=== PATIENT | female | born 1955 | race Caucasian/White ===

== ENCOUNTER 2017-05-31 08:37 | Observation (INO) | payer MEDICARE, MEDICAID ==
[~2017-05-31] VITALS: Ht 162.6 cm; Wt 100.0 kg
[2017-05-31] VITALS (12 sets, daily range): BP systolic 140–179; BP diastolic 65–87; PULSE 75–96; RESP 16–18; TEMP 95.8–99; O2SAT 93–100
[~2017-05-31 08:37] MED LIST: CYCL7.5T33 PO; GABA300C5 PO; LEVO88TA2 PO; LISI-515 PO; METF1000 PO; MULTLIQ; SOMA350T PO; TRAM50TA PO
[2017-05-31] MEDS ORDERED: SODIUM CHLOR 0.9% 250 ML INJ 250 ML IV ONE ×2 (09:00→10:30)
[2017-05-31] MEDS ORDERED: HYDR-2376 PO (09:17)
--- NOTE | 2017-05-31 09:19 | PD ---
HPI Chief Complaint: Abnormal Results Time Seen by Provider: 08:50 Travel History International Travel<30 days: No Contact w/Intl Traveler<30days: No Traveled to known affect area: No History of Present Illness HPI PATIENT HAD ROUTINE LABS DRAWN LAST WEDNESDAY, AT DR JAKY DAVIS OFFICE. PATIENT WAS CALLED FOR LOW HEMOGLOBIN, PER PATIENT SIMILAR EVENT HAPPENED BACK IN DECEMBER AND REQUIRED 4 UNITS TRANSFUSION. RECENTLY HAS BEEN FEELING MORE GENERALIZED WEAKNESS WITH ACTIVITY, AGGRAVATING WITH ACTIVITY, NO ALLEVIATING FACTORS. DENIES ASSOCIATED FACTORS OF DANIEL/CP/N/V/D/ABD PAIN/SOB CHART AND RN NOTES REVIEWED PCP ABOVE ALL:NKDA PMHX: HTN, HYPOTHYROID, HYPERLIPIDEMIA, DM, DDD, OSTEOARTHRITIS PSHX:GASTRIC BYPASS, CHOLECYSTECTOMY, BTL AND HYST PFSH Past Medical History Anemia: Yes Arthritis: Yes Autoimmune Disease: Yes (hypothyroid ) Cancer: No Cardiovascular Problems: No Diabetes: Yes Patient Takes Glucophage: Yes Endocrine: Yes Gastrointestinal Disorders: Yes (93' GASTRIC BY-PASS -REPAIR HIATAL HERNIA) Genitourinary: No Hepatitis: No Hiatal Hernia: No (REPAIRED IN 93') Hypertension: Yes Immune Disorder: No (ra) Medical other: Yes (POLYCYSTIC OVARIAN SYNDROME) Musculoskeletal: Yes (ARTHRITIS; BACK PAIN AND NECK PAIN. pain l leg) Neurologic: No Psychiatric: No Reproductive: No Respiratory: No Thyroid Disease: Yes Tubal Ligation: Yes Past Surgical History Abdominal Surgery: Yes (93' GASTRIC BY-PASS REPAIR HIATAL HERNIA AND ROSY) AICD: No Body Medical Devices: damir from bypass Section: Yes Cholecystectomy: Yes Gynecologic Surgery: Yes (80' TUBAL LIGATION, c section) Joint Replacement: No Pacemaker: No Other Surgery: Yes Social History Alcohol Use: No Tobacco Use: No Substance Use: No Allergies-Medications (Allergen,Severity, Reaction): Coded Allergies: No Known Allergies (Unverified Allergy, Unknown, 05/31/17) Reported Meds & Prescriptions Reported Meds & Active Scripts Active Flexeril (Cyclobenzaprine HCl) 7.5 Mg Tab 7.5 Mg PO TID Soma (Carisoprodol) 350 Mg Tab 350 Mg PO TID PRN Lisinopril 20 Mg Tab 20 Mg PO DAILY Gabapentin 300 Mg Cap 300 Mg PO BID Levothyroxine (Levothyroxine Sodium) 88 Mcg Tab 88 Mcg PO DAILY Metformin (Metformin HCl) 1,000 Mg Tab 1,000 Mg PO BIDPC With meals Tramadol (Tramadol HCl) 50 Mg Tab 50 Mg PO Q6H PRN Reported Hydrocodone-Acetaminophen 7.5-300 Mg Tab 1 Tab PO Q4H PRN Review of Systems Except as stated in HPI: all other systems reviewed are Neg General / Constitutional: No: Fever Eyes: No: Visual changes HENT: No: Headaches Cardiovascular: No: Chest Pain or Discomfort Respiratory: No: Shortness of Breath Gastrointestinal: No: Abdominal Pain Genitourinary: No: Dysuria Musculoskeletal: No: Pain Skin: Positive Other (PALE) Neurologic: Positive: Weakness (GEN) Psychiatric: No: Depression Endocrine: No: Polydipsia Hematologic/Lymphatic: No: Easy Bruising Physical Exam Narrative GENERAL: SKIN: Warm and dry. PALLOR HEAD: Atraumatic. Normocephalic. EYES: Pupils equal and round. No scleral icterus. No injection or drainage. ENT: No nasal bleeding or discharge. Mucous membranes pink and moist. NECK: Trachea midline. No JVD. CARDIOVASCULAR: Regular rate and rhythm. RESPIRATORY: No accessory muscle use. Clear to auscultation. Breath sounds equal bilaterally. GASTROINTESTINAL: Abdomen soft, non-tender, nondistended. MUSCULOSKELETAL: Extremities without clubbing, cyanosis, or edema. No obvious deformities. NEUROLOGICAL: Awake and alert. No obvious cranial nerve deficits. Motor grossly within normal limits. Five out of 5 muscle strength in the arms and legs. Normal speech. PSYCHIATRIC: Appropriate mood and affect; insight and judgment normal. Data Data Last Documented VS Vital Signs Date Time Temp Pulse Resp B/P (MAP) Pulse Ox O2 Delivery O2 Flow Rate FiO2 05/31/17 09:08 72 18 98 Room Air 05/31/17 08:39 98.5 142/68 (92) Orders Orders Type And Screen (05/31/17 08:50) Blood Product Administration (05/31/17 08:50) Sodium Chlor 0.9% 250 Ml Inj (Ns 250 Ml (05/31/17 09:00) Electrocardiogram (05/31/17 08:50) Complete Blood Count With Diff (05/31/17 08:50) Comprehensive Metabolic Panel (05/31/17 08:50) Troponin I (05/31/17 08:50) Prothrombin Time / Inr (Pt) (05/31/17 08:50) Act Partial Throm Time (Ptt) (05/31/17 08:50) Admit Order (Ed Use Only) (05/31/17 10:07) Labs Laboratory Tests Test 05/31/17 09:00 White Blood Count 6.4 TH/MM3 Red Blood Count 3.76 MIL/MM3 Hemoglobin 5.8 GM/DL Hematocrit 20.6 % Mean Corpuscular Volume 54.9 FL Mean Corpuscular Hemoglobin 15.6 PG Mean Corpuscular Hemoglobin Concent 28.3 % Red Cell Distribution Width 19.4 % Platelet Count 448 TH/MM3 Mean Platelet Volume 8.5 FL Neutrophils (%) (Auto) 54.4 % Lymphocytes (%) (Auto) 36.0 % Monocytes (%) (Auto) 5.0 % Eosinophils (%) (Auto) 3.2 % Basophils (%) (Auto) 1.4 % Neutrophils # (Auto) 3.5 TH/MM3 Lymphocytes # (Auto) 2.3 TH/MM3 Monocytes # (Auto) 0.3 TH/MM3 Eosinophils # (Auto) 0.2 TH/MM3 Basophils # (Auto) 0.1 TH/MM3 CBC Comment DIFF FINAL Differential Comment Prothrombin Time 11.2 SEC Prothromb Time International Ratio 1.0 RATIO Activated Partial Thromboplast Time 23.8 SEC Blood Urea Nitrogen 13 MG/DL Creatinine 0.63 MG/DL Random Glucose 133 MG/DL Total Protein 7.6 GM/DL Albumin 3.6 GM/DL Calcium Level 9.0 MG/DL Alkaline Phosphatase 103 U/L Aspartate Amino Transf (AST/SGOT) 15 U/L Alanine Aminotransferase (ALT/SGPT) 17 U/L Total Bilirubin 0.3 MG/DL Sodium Level 137 MEQ/L Potassium Level 4.5 MEQ/L Chloride Level 105 MEQ/L Carbon Dioxide Level 23.7 MEQ/L Anion Gap 8 MEQ/L Estimat Glomerular Filtration Rate 95 ML/MIN Iron Level 13 MCG/DL Total Iron Binding Capacity 580 MCG/DL Percent Iron Saturation 2.2 % Ferritin 2 NG/ML Troponin I LESS THAN 0.02 NG/ML MDM Medical Decision Making Medical Screen Exam Complete: Yes Emergency Medical Condition: Yes Medical Record Reviewed: Yes Interpretation(s) NSR 65, NL INTERVALS, NO STEMI PATTERN Differential Diagnosis ANEMIA V PNA V PTX V ELECTROLYTE ABNL Narrative Course patient found to have severe anemia and symptomatic, so patient was type and crossed and transfused. also admitted for further reevaluation and to observe and ensure no transfusion reactions occur. Critical Care Narrative CRITICAL CARE NOTE: With evaluation of the patient, labs, EKG, receipt of radiologic studies, administration of medications, reevaluation the patient and discussion of the patient with the admitting physicians, the total critical care time was [30] minutes. Time to perform other separately billable procedures was not included in the critical care time. Diagnosis Primary Impression: symptomatic anemia Admitting Information Admitting Physician Requests: Admit Omar Hackett MD May 31, 2017 09:19
[2017-05-31 09:27] LABS: AUTOMATED NEUTROPHIL # 3.5 TH/MM3 (1.8-7.7); BASOPHIL # 0.1 TH/MM3 (0-0.2); BASOPHIL % 1.4 % (0.0-2.0); EOSINOPHIL # 0.2 TH/MM3 (0-0.4); EOSINOPHIL % 3.2 % (0.0-4.0); LYMPHOCYTE # 2.3 TH/MM3 (1.0-4.8); MEAN CELL VOLUME 54.9 FL (80.0-100.0); MEAN CORPUSCULAR HEMOGLOBIN 15.6 PG (27.0-34.0); NEUT % 54.4 % (16.0-70.0); PLATELET COUNT 448 TH/MM3 (150-450); RED BLOOD COUNT 3.76 MIL/MM3 (4.00-5.30); RED CELL DISTRIBUTION WIDTH 19.4 % (11.6-17.2); WHITE BLOOD COUNT 6.4 TH/MM3 (4.0-11.0)
[2017-05-31 09:31] LABS: HEMO FLAGS DIFF FINAL; MEAN CORPUSCULAR HGB CONC 28.3 % (32.0-36.0)
[2017-05-31 09:34] LABS: HEMATOCRIT 20.6 % (35.0-46.0)
[2017-05-31 09:36] LABS: APTT (PATIENT) 23.8 SEC (24.3-30.1); PROTHROMBIN TIME - PATIENT 11.2 SEC (9.8-11.6)
[2017-05-31 09:45] LABS: ANION GAP 8 MEQ/L (5-15); AST (GOT) 15 U/L (15-37); BICARBONATE 23.7 MEQ/L (21.0-32.0); BLOOD UREA NITROGEN 13 MG/DL (7-18); CHLORIDE 105 MEQ/L (98-107); GLOMERULAR FILTRATION RATE 95 ML/MIN (>89); POTASSIUM 4.5 MEQ/L (3.5-5.1); SODIUM (NA) 137 MEQ/L (136-145)
[2017-05-31 09:46] LABS: ALT (GPT) 17 U/L (10-53)
[2017-05-31 09:53] LABS: ALKALINE PHOSPHATASE 103 U/L (45-117); TOTAL BILIRUBIN ADULT 0.3 MG/DL (0.2-1.0)
--- NOTE | 2017-05-31 10:47 | HHI.HP ---
[facility] Service Family Medicine Primary Care Physician Emma Lutz MD Admission Diagnosis SYMPTOMATIC ANEMIA Diagnoses: International Travel<30 Days: No Contact w/Intl Traveler<30days: No Known Affected Area: No History of Present Illness Mrs. Pat is a 61 yo F patient of Dr. Emma Lutz with PM/SH of gastric bypass (1992), T2DM, hypothyroidism who presents to [facility] ED due to recent outpatient labs demonstrating anemia [patient contacted 05/[address] Ferguson regarding Hgb 5.3 mg/dl recommending ED evaluation/transfusion]. Patient reports that she has been doing ok recently but has been feeling more tired for the past several weeks. Patient has not been able to exert herself in her yard due to her recent fatigue; she has still been able to ambulate prolonged distances in grocery store. For the past ~2 days, patient has also felt increased dizziness. Patient does not report shortness of breath or chest pain. Patient reports recent history of anemia; she states that she required a total of 4 U pRBC transfused after L hip replacement 01/05/2017. [Per EMR review, patient had pre-op hemoglobin of 11.2 this summer]. Patient also reports distant history of anemia 45 years prior and in the late 1979's- early 1989's; patient reports heavy periods in her youth. Patient also reports family history of her mother having a "borderline" anemia but does not report other family members with anemia; she reports and ancestry. Patient reports gastric bypass in 1992; she has been taking some vitamin supplementation including iron supplementation, but has not taken iron supplementation for ~1 year. Patient continues to take B7 and multivitamin supplementation. Patient has not felt any increasing back pain, hip pain, or bruising since her L hip replacement; her back pain has remained consistent while being controlled with home opiates. Patient has also not noticed any blood in her stool; she has ~3 BM/day which are loose and not black or red in color. Patient does not report vaginal bleeding since ~1993. Patient denies headaches, reports history of cataracts but no recent vision changes, denies sweating or fevers, and denies chest pain. Patient reports some chronic indigestion from medications. No recent changes in L hip, lower back, or hip pain. PAP in 06/2015 was wnl. Colonoscopy- 2016 wnl (Scotty Calderon MD, R3) Review of Systems Constitutional: COMPLAINS OF: Fatigue, DENIES: Fever Eyes: DENIES: Blurred vision, Eye pain Respiratory: DENIES: Cough, Shortness of breath Cardiovascular: DENIES: Chest pain, Lower Extremity Edema Gastrointestinal: DENIES: Abdominal pain, Constipation, Diarrhea, Nausea, Vomiting Genitourinary: DENIES: Abnormal vaginal bleeding, Urinary frequency Integumentary: DENIES: Abnormal pigmentation, Rash Hematologic/lymphatic: DENIES: Bruising, Lymphadenopathy Neurologic: DENIES: Abnormal gait, Headache Psychiatric: DENIES: Anxiety, Depression (Scotty Calderon MD, R3) Past Family Social History Past Medical History PMH T2DM hypothyroidism anemia PCOS HTN RA OA lumbar stenosis Past Surgical History PSH 11/1992- gastric bypass 1977- CS 1979- tubal ligation cholecystectomy- 1992 hiatal hernia repair - 1992 2014- back surgery (lumar laminectomy with microdiscectomy) hip replacement 12/2016 (Scotty Calderon MD, R3) Allergies: Coded Allergies: No Known Allergies (Unverified Allergy, Unknown, 05/31/17) Family History FH mother- anemia, diabetic GM- skin cancer GF- unspecified cancer Social History SH- prior drinking; none recent quit cigarettes 30 yrs prior lives with pet (Scotty Calderon MD, R3) Physical Exam Vital Signs Vital Signs Date Time Temp Pulse Resp B/P (MAP) Pulse Ox O2 Delivery O2 Flow Rate FiO2 05/31/17 10:15 77 18 151/70 (97) 96 Room Air 05/31/17 09:08 72 18 98 Room Air 05/31/17 08:39 98.5 84 18 142/68 (92) 93 Physical Exam GENERAL: Patient appears comfortable, in no acute distress. SKIN: Warm and dry, no rashes appreciated. Tattoo distal lower extremity. L hip healed surgical incision present EYES: Pale palpebral conjunctivae. Grossly normal extraocular movements. HENT: Head: Normocephalic. Mouth: Oral mucosa appeared normal. NECK: No appreciated lymphadenopathy or thyromegaly CARDIOVASCULAR: Regular rate and rhythm without murmurs. Normal peripheral perfusion in lower extremities. RESPIRATORY: Normal respiratory rate. Lungs clear to auscultation bilaterally. GASTROINTESTINAL: Abdomen soft, nondistended,no pain to palpation. Bowel sounds normal. MUSCULOSKELETAL: No lower extremity swelling. No appreciated calf asymmetry. Gait not assessed NEURO/PSYCH: Awake, alert, and oriented. Cranial nerves grossly normal. Grossly normal motor and sensory function. Laboratory Laboratory Tests Test 05/31/17 09:00 White Blood Count 6.4 Red Blood Count 3.76 Hemoglobin 5.8 Hematocrit 20.6 Mean Corpuscular Volume 54.9 Mean Corpuscular Hemoglobin 15.6 Mean Corpuscular Hemoglobin Concent 28.3 Red Cell Distribution Width 19.4 Platelet Count 448 Mean Platelet Volume 8.5 Neutrophils (%) (Auto) 54.4 Lymphocytes (%) (Auto) 36.0 Monocytes (%) (Auto) 5.0 Eosinophils (%) (Auto) 3.2 Basophils (%) (Auto) 1.4 Neutrophils # (Auto) 3.5 Lymphocytes # (Auto) 2.3 Monocytes # (Auto) 0.3 Eosinophils # (Auto) 0.2 Basophils # (Auto) 0.1 CBC Comment DIFF FINAL Differential Comment Prothrombin Time 11.2 Prothromb Time International Ratio 1.0 Activated Partial Thromboplast Time 23.8 Blood Urea Nitrogen 13 Creatinine 0.63 Random Glucose 133 Total Protein 7.6 Albumin 3.6 Calcium Level 9.0 Alkaline Phosphatase 103 Aspartate Amino Transf (AST/SGOT) 15 Alanine Aminotransferase (ALT/SGPT) 17 Total Bilirubin 0.3 Sodium Level 137 Potassium Level 4.5 Chloride Level 105 Carbon Dioxide Level 23.7 Anion Gap 8 Estimat Glomerular Filtration Rate 95 Troponin I LESS THAN 0.02 (Scotty Calderon MD, R3) Result Diagram: 05/31/17 0900 05/31/17 09 Caprini VTE Risk Assessment Caprini VTE Risk Assessment: Mod/High Risk (score >= 2) VTE Pharm Contraindication: Caprini Risk Assessment Model Point Value = 1 Point Value = 2 Point Value = 3 Point Value = 5 Age 41-60 Minor surgery BMI > 25 kg/m2 Swollen legs Varicose veins or History of unexplained or recurrent spontaneous Oral contraceptives or hormone replacement Sepsis (< 1 month) Serious lung disease, including pneumonia (< 1 month) Abnormal pulmonary function Acute myocardial infarction Congestive heart failure (< 1 month) History of inflammatory bowel disease Medical patient at bed rest Age 61-74 Arthroscopic surgery Major open surgery (> 45 min) Laparoscopic surgery (> 45 min) Malignancy Confined to bed (> 72 hours) Immobilizing plaster cast Central venous access Age >= 75 History of VTE Family history of VTE Factor V Leiden Prothrombin [id number] Lupus anticoagulant Anticardiolipin antibodies Elevated serum homocysteine Heparin-induced thrombocytopenia Other congenital or acquired thrombophilia Stroke (< 1 month) Elective arthroplasty Hip, pelvis, or leg fracture Acute spinal cord injury (< 1 month) Prophylaxis Regimen Total Risk Factor Score Risk Level Prophylaxis Regimen 0-1 Low Early ambulation 2 Moderate Order ONE of the following: *Sequential Compression Device (SCD) *Heparin 5000 units SQ BID 3-4 Higher Order ONE of the following medications: *Heparin 5000 units SQ TID *Enoxaparin/Lovenox 40 mg SQ daily (WT < 150 kg, CrCl > 30 mL/min) *Enoxaparin/Lovenox 30 mg SQ daily (WT < 150 kg, CrCl > 10-29 mL/min) *Enoxaparin/Lovenox 30 mg SQ BID (WT < 150 kg, CrCl > 30 mL/min) AND/OR *Sequential Compression Device (SCD) 5 or more Highest Order ONE of the following medications: *Heparin 5000 units SQ TID (Preferred with Epidurals) *Enoxaparin/Lovenox 40 mg SQ daily (WT < 150 kg, CrCl > 30 mL/min) *Enoxaparin/Lovenox 30 mg SQ daily (WT < 150 kg, CrCl > 10-29 mL/min) *Enoxaparin/Lovenox 30 mg SQ BID (WT < 150 kg, CrCl > 30 mL/min) AND *Sequential Compression Device (SCD) (Scotty Calderon MD, R3) Assessment and Plan Assessment and Plan Mrs. Pat is a 61 yo F with: Seen and discussed with Dr. Escalona Code Status Full code (Scotty Calderon MD, R3) Attending Attestation Patient interviewed and examined with Dr. Calderon. This 61 year old white female presented with severe symptomatic anemia, with gradual onset of symptoms over past few weeks. Reports hip replacement December 2016 during which time she required blood transfusions. Of note she has Chronic anemia dating back to the late 1980s, including history of menorrhagia, no other related diagnoses despite "extensive workup" per patient. Subsequently Underwent bariatric surgery with gastric bypass , took iron supplementation regularly until approximately 1 year ago, When she discontinued due to constipation. Clinically this patient has post bariatric surgery malabsorption with subtherapeutic supplementation (not taking iron), and loss of iron stores. We will place in observation for transfusion, and recommend iron supplementation. If intolerant to oral therapy or ineffective, would consider iron transfusions. I HAVE REVIEWED THE RECORD AND AGREE WITH THE ABOVE NOTE AND PLAN OF CARE WAS DISCUSSED. I HAVE AUTHORIZED THE ORDER FOR PLACEMENT IN OUT-PATIENT OBSERVATION STATUS. (Joan Escalona MD) Problem List: (1) Anemia ICD Codes: D64.9 - Anemia, unspecified Status: Acute Plan: Impression: Patient with Hgb 5.8 / Hct 20.6 (MCV 54.9, RDW 19.4). WBC 6.4 , PLT 448 Per EMR, recent pre-operative Hgb of 11.2 prior to L hip replacement 01/05/2017. Post-operative Hgb 5.2 (01/06); patient subsequently received 4 U pRBC. -Transfuse 2 u pRBC per ED recommendation -Will initiate ferrous sulfate 325mg BID -Will check iron studies for microcytosis -Ferritin- 2 -TIBC- 2.2% -Iron- 13 -Will plan to discuss with PCP regarding outpatient iron transfusion due to profound iron deficiency (ferritin 2) -Will monitor CBC during hospitalization (2) History of gastric bypass ICD Codes: Z98.890 - Other specified postprocedural states Status: Chronic Plan: Impression: Patient with distant history of gastric bypass in 1992; patient has had general subsequent vitamin/nutritional replacement but has not been on iron supplementation for ~1 year. Patient continues to take multivitamin and biotin -Will restart ferrous sulfate 325mg BID -Will continue Multivitamin -Will continue Biotin -Will start B12 replacement -Will consider folate replacement -Will consider checking Vit A level since patient reports cataracts in association with history of gastric bypass (3) T2DM (type 2 diabetes mellitus) ICD Codes: E11.9 - Type 2 diabetes mellitus without complications Status: Chronic Plan: Impression: Labs with recent Hgb A1C 7.4 05/2017 -Continue Metformin 1000mg BID since do not anticipate need for contrast in hospital -will defer Accuchecks -Continue Lisinopril 20mg daily -Will discuss consideration of statin/ASA for ASCVD risk -Patient plans to start taking 81mg ASA -ASCVD risk 9.4% using 05/2017 Lipid profile; patient will consider statin with PCP (4) Lumbar stenosis ICD Codes: M48.061 - Spinal stenosis, lumbar region without neurogenic claudication Status: Chronic Plan: Impression: History of prior lumbar surgery -Will continue home pain management -Tramadol -Hydrocodone/Acetaminophen 7.5mg/325mg -Soma -Flexeril (5) Hypothyroidism ICD Codes: E03.9 - Hypothyroidism, unspecified Status: Chronic Plan: Impression: History of hypothyroidism; last TSH ordered 05/2017 pending -Will continue home Levothyroxine 88mcg daily (6) DVT PPX Status: Acute Plan: -Bilateral SCD's -Will defer anticoagulation since anticipate discharge tomorrow (7) Fluids, Electrolytes, and Nutrition Status: Acute Plan: Fluids: Will defer and give regular diet Electrolytes: CMP on admission wnl Nutrition: Diabetic diet (Scotty Calderon MD, R3) Physician Certification 2 Midnight Certification Type: Admission for Inpatient Services (Observation) Order for Inpatient Services The services are ordered in accordance with Medicare regulations or non- Medicare payer requirements, as applicable. In the case of services not specified as inpatient-only, they are appropriately provided as inpatient services in accordance with the 2-midnight benchmark. Estimated LOS (days): 1 days is the estimated time the patient will need to remain in the hospital, assuming treatment plan goals are met and no additional complications. Post-Hospital Plan: Home (Scotty Calderon MD, R3) Problem Qualifiers (1) Anemia: Qualified Codes: D64.9 - Anemia, unspecified (2) T2DM (type 2 diabetes mellitus): Qualified Codes: E11.9 - Type 2 diabetes mellitus without complications (3) Lumbar stenosis: Qualified Codes: M48.061 - Spinal stenosis, lumbar region without neurogenic claudication (4) Hypothyroidism: Qualified Codes: E03.9 - Hypothyroidism, unspecified Scotty Calderon MD, R3 May 31, 2017 10:47 Joan Escalona MD May 31, 2017 15:16
[2017-05-31] MEDS ORDERED: NALOXONE HCL 0.4 MG/ML AMP IV PUSH PRN (11:00)
[2017-05-31] MEDS ORDERED: SODIUM CHLORIDE 0.9% FLUSH 10 ML FLUSH IV FLUSH PRN (11:00)
[2017-05-31 12:39] LABS: TRANSFERRIN IRON PROFILE 414 MG/DL (200-360)
[2017-05-31 12:42] LABS: FERRITIN 2 NG/ML (8-252)
[2017-05-31] MEDS ORDERED: NON-FORMULARY DRUG (Hydrocodone-Acetaminophen 1 TAB) PO PRN (12:45)
[2017-05-31] MEDS ORDERED: traMADol HCL 50 MG TAB PO PRN (13:00)
[2017-05-31] MEDS ORDERED: CYCLOBENZAPRINE 7.5 MG PO SCH (13:00)
[2017-05-31] MEDS ORDERED: CARISOPRODOL 350 MG TAB PO PRN (14:00)
[2017-05-31] MEDS ORDERED: CYCLOBENZAPRINE HCL 10 MG TAB PO PRN (14:15)
[2017-05-31] MEDS ORDERED: ACETAMINOPHEN/HYDROcodone 325 MG/7.5 MG TAB PO PRN (14:15)
[2017-05-31] MEDS: LISINOPRIL 20 MG TAB PO SCH (14:20)
--- NOTE | 2017-05-31 15:34 | EKG ---
Date Performed: 05/31/2017 Time Performed: 09:04:19 PTAGE: 61 years EKG: Sinus rhythm Compared to prior tracing no significant change NORMAL ECG PREVIOUS TRACING : 08/20/2014 13.07 DOCTOR: Shaji Escalona Interpretating Date/Time 05/31/2017 15:33:29
[2017-05-31] MEDS ORDERED: hydrALAZINE HCL 10 MG TAB PO PRN (18:00)
[2017-05-31] MEDS ORDERED: ONDANSETRON HCL 4 MG/2 ML VIAL IV PUSH PRN (18:00)
[2017-05-31] MEDS: metFORMIN HCL 500 MG TAB PO SCH (18:19)
[2017-05-31] MEDS: GABAPENTIN 300 MG CAP PO SCH (21:16)
[2017-05-31] MEDS: FERROUS SULFATE 325 MG (65 MG ELEMENTAL IRON) TAB PO SCH (21:16)
[2017-05-31] MEDS: MULTIVITAMIN TAB PO SCH (21:17)
[2017-05-31] MEDS: SODIUM CHLORIDE 0.9% FLUSH 10 ML FLUSH IV FLUSH SCH (21:18)
[2017-05-31 22:21] LABS: BASOPHIL # 0.1 TH/MM3 (0-0.2); BASOPHIL % 1.4 % (0.0-2.0); EOSINOPHIL # 0.2 TH/MM3 (0-0.4); EOSINOPHIL % 2.9 % (0.0-4.0); HEMATOCRIT 25.3 % (35.0-46.0); LYMPH % 31.5 % (9.0-44.0); LYMPHOCYTE # 2.2 TH/MM3 (1.0-4.8); MEAN CELL VOLUME 60.3 FL (80.0-100.0); MONO % 6.7 % (0.0-8.0); NEUT % 57.5 % (16.0-70.0); PLATELET COUNT 432 TH/MM3 (150-450); RED CELL DISTRIBUTION WIDTH 27.3 % (11.6-17.2); WHITE BLOOD COUNT 6.9 TH/MM3 (4.0-11.0)
[2017-05-31 22:22] LABS: HEMO FLAGS AUTO DIFF; MEAN CORPUSCULAR HGB CONC 29.9 % (32.0-36.0)
[2017-06-01 00:22] LABS: SCAN/DIFF AUTO DIFF CONFIRMED
[2017-06-01 03:26] VITALS: BP 149/66; PULSE 64; RESP 17; TEMP 98.1; O2SAT 100
[2017-06-01] MEDS ORDERED: LEVOTHYROXINE SODIUM 88 MCG TAB PO SCH (06:00)
[2017-06-01 06:58] LABS: AUTOMATED NEUTROPHIL # 3.3 TH/MM3 (1.8-7.7); BASOPHIL # 0.1 TH/MM3 (0-0.2); BASOPHIL % 1.6 % (0.0-2.0); EOSINOPHIL # 0.2 TH/MM3 (0-0.4); EOSINOPHIL % 3.6 % (0.0-4.0); LYMPH % 28.9 % (9.0-44.0); LYMPHOCYTE # 1.6 TH/MM3 (1.0-4.8); MEAN CELL VOLUME 60.2 FL (80.0-100.0); MEAN CORPUSCULAR HEMOGLOBIN 18.6 PG (27.0-34.0); MONO % 6.8 % (0.0-8.0); NEUT % 59.1 % (16.0-70.0); PLATELET COUNT 360 TH/MM3 (150-450); RED BLOOD COUNT 3.66 MIL/MM3 (4.00-5.30); RED CELL DISTRIBUTION WIDTH 26.9 % (11.6-17.2); WHITE BLOOD COUNT 5.6 TH/MM3 (4.0-11.0)
[2017-06-01 06:59] LABS: HEMO FLAGS AUTO DIFF
[2017-06-01 07:34] LABS: BICARBONATE 25.8 MEQ/L (21.0-32.0)
[2017-06-01] MEDS ORDERED: SODIUM CHLOR 0.9% 250 ML INJ 250 ML IV ONE (08:15)
[2017-06-01 08:17] VITALS: BP 171/70; PULSE 75; RESP 18; TEMP 98.5; O2SAT 100
--- NOTE | 2017-06-01 08:29 | HHI.FPPN ---
Subjective Remarks Mrs. Pat was afebrile with mild HTN overnight (SBP 140's-160's). Patient reports feeling well overnight and this morning without reported dizziness or weakness. Patient reports 1 loose bowel movement overnight without evidence of blood. Regarding patient's elevated BP overnight; she reiterates that she checks her BP frequently at home and gets systolic value of ~130. Patient open to IV iron replacement if needed as outpatient. (Scotty Calderon MD, R3) Objective Vitals Vital Signs Date Time Temp Pulse Resp B/P (MAP) Pulse Ox O2 Delivery O2 Flow Rate FiO2 06/01/17 08:17 98.5 75 18 171/70 (103) 100 06/01/17 03:26 98.1 64 17 149/66 (93) 100 05/31/17 23:49 98.8 80 16 161/68 (99) 100 05/31/17 21:00 99.0 75 18 163/76 (105) 99 05/31/17 19:31 95.8 85 16 140/83 98 05/31/17 17:54 98.4 87 16 176/78 (110) 97 05/31/17 17:04 98.1 88 16 162/74 98 05/31/17 16:25 98.4 96 16 179/77 98 05/31/17 15:39 98.0 82 16 148/66 (93) 99 05/31/17 14:17 97.9 84 16 168/87 100 05/31/17 13:02 98.3 80 16 150/66 100 05/31/17 12:36 98.0 86 16 146/65 (92) 100 05/31/17 10:15 77 18 151/70 (97) 96 Room Air 05/31/17 09:08 72 18 98 Room Air 05/31/17 08:39 98.5 84 18 142/68 (92) 93 I/O 05/31/17 05/31/17 05/31/17 06/01/17 06/01/17 06/01/17 06:59 14:59 22:59 06:59 14:59 22:59 Intake Total 5 ml 815 ml Balance 5 ml 815 ml Intake Packed Cells 800 ml Blood Product IV Normal Saline Flush 5 ml 15 ml # Voids 1 # Bowel Movements 1 (Scotty Calderon MD, R3) Result Diagram: 06/01/1710 06/01/17 0610 Objective Remarks GENERAL: Patient appears comfortable, in no acute distress. SKIN: Warm and dry, no rashes appreciated. Tattoo distal lower extremity. L hip healed surgical incision present EYES: Grossly normal extraocular movements. HENT: Head: Normocephalic. Mouth: Oral mucosa appeared normal. CARDIOVASCULAR: Regular rate and rhythm without murmurs. Normal peripheral perfusion in lower extremities. RESPIRATORY: Normal respiratory rate. Lungs clear to auscultation bilaterally. GASTROINTESTINAL: Abdomen soft, nondistended,no pain to palpation. Bowel sounds normal. Rectal: some hemorrhoids. Hemoccult negative MUSCULOSKELETAL: No lower extremity swelling. No appreciated calf asymmetry. Gait normal NEURO/PSYCH: Awake, alert, and oriented. Cranial nerves grossly normal. Grossly normal motor and sensory function. (Scotty Calderon MD, R3) A/P Assessment and Plan Mrs. Pat is a 61 yo F with: Seen and discussed with Dr. Escalona Discharge Planning Anticipate discharge today after an additional unit pRBC (Scotty Calderon MD, R3) Attending Attestation Patient seen and examined. Case reviewed and discussed with Dr Calderon. Agree with plan of care as discussed with me and documented in the resident note. (Joan Escalona MD) Problem List: (1) Anemia ICD Codes: D64.9 - Anemia, unspecified Status: Acute Plan: 06/01: Hgb 7.6 05/31 after 2 U pRBC -> 6.8 this morning. No known blood loss; Hemoccult negative. Patient feeling better -Transfusion -s/p 2 u pRBC -Continue ferrous sulfate 325mg BID -Patient open to IV supplementation as outpatient with PCP if needed -Will plan to initiate IV iron sucrose: -200mg IV iron sucrose today -200mg IV iron sucrose daily x4 days at outpatient infusion center Impression: Patient with Hgb 5.8 / Hct 20.6 (MCV 54.9, RDW 19.4). WBC 6.4, PLT 448 Per EMR, recent pre-operative Hgb of 11.2 prior to L hip replacement 01/05/2017. Post-operative Hgb 5.2 (01/06); patient subsequently received 4 U pRBC. Iron studies strongly suggest iron deficiency anemia: Ferritin- 2, TIBC- 2.2%, Iron- 13 Hemoccult negative (2) History of gastric bypass ICD Codes: Z98.890 - Other specified postprocedural states Status: Chronic Plan: Impression: Patient with distant history of gastric bypass in 1992; patient has had general subsequent vitamin/nutritional replacement but has not been on iron supplementation for ~1 year. Patient continues to take multivitamin and biotin -Continue ferrous sulfate 325mg BID -Will continue Multivitamin -Will continue Biotin -Will continue B12 replacement -Will consider folate replacement -Will consider checking Vit A level since patient reports cataracts in association with history of gastric bypass (3) T2DM (type 2 diabetes mellitus) ICD Codes: E11.9 - Type 2 diabetes mellitus without complications Status: Chronic Plan: Impression: Labs with recent Hgb A1C 7.4 05/2017 -Continue Metformin 1000mg BID since do not anticipate need for contrast in hospital -will defer Accuchecks -Continue Lisinopril 20mg daily -Will discuss consideration of statin/ASA for ASCVD risk -Patient plans to start taking 81mg ASA -ASCVD risk 9.4% using 05/2017 Lipid profile; patient will consider statin with PCP (4) Lumbar stenosis ICD Codes: M48.061 - Spinal stenosis, lumbar region without neurogenic claudication Status: Chronic Plan: Impression: History of prior lumbar surgery -Will continue home pain management -Tramadol 50 -Hydrocodone/Acetaminophen 7.5mg/325mg -Soma -Flexeril (5) Hypothyroidism ICD Codes: E03.9 - Hypothyroidism, unspecified Status: Chronic Plan: Impression: History of hypothyroidism; last TSH ordered 05/2017 pending -Will continue home Levothyroxine 88mcg daily (6) DVT PPX Status: Acute Plan: -Bilateral SCD's -Will defer anticoagulation since anticipate discharge today (7) Fluids, Electrolytes, and Nutrition Status: Acute Plan: Fluids: Will defer and give regular diet Electrolytes: CMP on admission wnl Nutrition: Diabetic diet (Scotty Calderon MD, R3) Problem Qualifiers (1) Anemia: Qualified Codes: D64.9 - Anemia, unspecified (2) T2DM (type 2 diabetes mellitus): Qualified Codes: E11.9 - Type 2 diabetes mellitus without complications (3) Lumbar stenosis: Qualified Codes: M48.061 - Spinal stenosis, lumbar region without neurogenic claudication (4) Hypothyroidism: Qualified Codes: E03.9 - Hypothyroidism, unspecified Scotty Calderon MD, R3 Jun 01, 2017 08:29 Joan Escalona MD Jun 01, 2017 17:05
[2017-06-01 08:39] LABS: BANDS 1 % (0-6); BASOPHILS 3 % (0-2); EOSINOPHILS 3 % (0-4); MYELOCYTES 1 % (0-0); NEUTROPHIL # MANUAL DIFF 3.7 TH/MM3 (1.8-7.7); PLATELET ESTIMATE SMEAR NORMAL (NORMAL); PLATELET MORPHOLOGY NORMAL (NORMAL); POLYS (SEG NEUTROPHILS) 64 % (16-70); SCAN/DIFF FINAL DIFF MANUAL; WBC DIFF SAMPLE 100
[2017-06-01 08:40] LABS: OVALOCYTES 1+ (NORMAL)
--- NOTE | 2017-06-01 08:56 | HHI.DCPOC ---
Discharge Care Plan Diagnosis: (1) Iron deficiency anemia Goals to Promote Your Health * To prevent worsening of your condition and complications * To maintain your health at the optimal level Directions to Meet Your Goals Take your medications as prescribed Follow your dietary instruction Follow activity as directed Keep your appointments as scheduled Take your immunizations and boosters as scheduled If your symptoms worsen call your PCP, if no PCP go to Urgent Care Center or Emergency Room Smoking is Dangerous to Your Health. Avoid second hand smoke Call the 24-hour hour crisis hotline for domestic abuse at Scotty Calderon MD, R3 Jun 01, 2017 08:56
[2017-06-01] MEDS ORDERED: THIAMINE HCL 100 MG TAB PO SCH (09:00)
[2017-06-01] MEDS ORDERED: CYANOCOBALAMIN 100 MCG TAB PO SCH (09:00)
[2017-06-01] MEDS ORDERED: THERTAB15 PO (09:04)
[2017-06-01] MEDS ORDERED: CYAN100 PO (09:04)
[2017-06-01] MEDS ORDERED: THIA100 PO (09:04)
[2017-06-01] MEDS ORDERED: FERR325T20 PO (09:04)
[2017-06-01] MEDS ORDERED: IRON SUCROSE 100 MG/5 ML VIAL IV PUSH ONE (09:15)
[2017-06-01] MEDS: SODIUM CHLORIDE 0.9% FLUSH 10 ML FLUSH IV FLUSH SCH (09:19)
[2017-06-01] MEDS: FERROUS SULFATE 325 MG (65 MG ELEMENTAL IRON) TAB PO SCH (09:19)
[2017-06-01] MEDS: LISINOPRIL 20 MG TAB PO SCH (09:20)
[2017-06-01] MEDS: MULTIVITAMIN TAB PO SCH (09:20)
[2017-06-01] MEDS: GABAPENTIN 300 MG CAP PO SCH (09:20)
[2017-06-01] MEDS: metFORMIN HCL 500 MG TAB PO SCH (09:20)
--- NOTE | 2017-06-01 09:23 | HHI.FF ---
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 [] May leave port accessed during therapy. [] May leave peripheral site accessed for duration of therapy. [x] If patient has SOB or respiratory distress, check oxygen saturation. If less than 90% or clinical signs of respiratory distress, administer oxygen at 2 L/min. via nasal cannula and notify physician. [x] Anaphylaxis/Reaction orders: * Stop infusion. * Keep IV line open with saline flush. * Notify physician. * Monitor vital signs every 15 minutes until symptoms resolve. * Check Oxygen saturation; Oxygen at 2 L/min. via nasal cannula if less than 90% or clinical signs of respiratory distress. * Administer diphenhydramine (Benadryl) 25 mg IV STAT, (unless patient has received as pre-med). May repeat once, if necessary. * Solu-Cortef 250 mg IVP over 30-60 seconds, use 100 mg vials for each dissolution. * Epinephrine (1mg/1 ml) 0.3 mg subcutaneously or IVP now with any signs of respiratory distress. * Check with physician for new additional pre-med orders if patient is re- challenged or re-treated. [x] May remove PICC line when treatment complete, after confirming with Physician. [x] If the patient is admitted to the hospital, the ED, or transferred via [facility] , complete transfer form including medication reconciliation order sheet. Laboratory Tests Weekly Labs: CBC w/diff Scotty Calderon MD, R3 Jun 01, 2017 09:23
[2017-06-01] MEDS ORDERED: methylPREDNISolone SOD SUCC 125 MG/2 ML VIAL IV PUSH ONE (09:30)
[2017-06-01] MEDS ORDERED: IRON SUCROSE INJ 200 MG in SODIUM CHLORIDE 0.9% INJ 100 ML IV ONE (09:30)
[2017-06-01 11:47] VITALS: BP 153/75; PULSE 72; RESP 16; TEMP 98; O2SAT 96
[2017-06-01] MEDS ORDERED: PRED10 PO (13:55)
[2017-06-03] MEDS ORDERED: IRON100P2 IV (09:08)
== END 2017-06-01 14:50 | disposition home or self-care (01) ==
LOC: NEPE 08:37 → UNDOADMOB 10:08 → NEDA 10:08 → NEPGCP 13:00 → OBSVTOIN 06-01 08:58 → INTOOBSV 06-01 08:58 → UNDODISOB 06-01 14:50
PROVIDERS: ADMIT Family Medicine; ATTEND Family Medicine
DX: D50.9 Iron deficiency anemia, unspecified (principal); E78.5 Hyperlipidemia, unspecified; M54.9 Dorsalgia, unspecified; M54.2 Cervicalgia; M79.605 Pain in left leg; R19.7 Diarrhea, unspecified; E11.9 Type 2 diabetes mellitus without complications; M48.061 Spinal stenosis, lumbar region without neurogenic claudication; E03.9 Hypothyroidism, unspecified; K30 Functional dyspepsia; I10 Essential (primary) hypertension; M06.9 Rheumatoid arthritis, unspecified; M19.90 Unspecified osteoarthritis, unspecified site; Z79.84 Long term (current) use of oral hypoglycemic drugs; Z79.899 Other long term (current) drug therapy; Z96.642 Presence of left artificial hip joint; Z98.84 Bariatric surgery status; Z87.891 Personal history of nicotine dependence
CPT/HCPCS: 36430; 80048; 80053; 82728; 82948; 83540; 83550; 84484; 85007; 85025; 85027; 85610; 85730; 86850; 86900; 86901; 86920; 93005; 96361; 96365; 96375; 99291; G0378; J1756; J2405; J2930; J7050; P9016

== ENCOUNTER → 2017-10-18 | Outpatient (CLI) | payer MEDICARE, MEDICAID ==
[~2017-10-18] MED LIST changes: +CYAN100 PO; +FERR325T20 PO; -MULTLIQ; -SOMA350T PO; +THERTAB15 PO; +THIA100 PO
== END ==
LOC: CDED 10:12
PROVIDERS: ATTEND Family Medicine
DX: E11.9 Type 2 diabetes mellitus without complications (principal); I10 Essential (primary) hypertension; E56.9 Vitamin deficiency, unspecified; D50.9 Iron deficiency anemia, unspecified; E66.9 Obesity, unspecified
CPT/HCPCS: 97802